=== PATIENT | female | born 1950 | race Caucasian/White ===

== ENCOUNTER → 2016-07-25 | Outpatient (CLI) | payer MEDICARE, OTHER ==
--- NOTE | ~2016-07-25 | US77 ---
[facility] A Service of [facility] RADIOLOGY TEXT RESULTS PATIENT: CHEPE BEY LOCATION: [facility] : 52 UNIT #: [id number] AGE: [address]: Papito Hartman MD SEX: F ORDER DR: [id number] [facility] [address] [facility] [place], [place] [address] [id number] O MR#: [id number] Acc #: [id number] NAME: CHEPE BEY : 1950 SEX: F STUDY DATE/TIME: 07/25/2016 14:40 UNIT: [facility] ROOM: STUDY DESCRIPTION: US Kidney Bilateral Complete Attending Physician: Papito Hartman M.D. Referring Physician: Papito Hartman M.D. Ordering Physician: Papito Hartman M.D. Primary Care Physician: Nia Kellogg Aprn MEDICAL IMAGING REPORT This report is preliminary unless electronic signature is present EXAM Renal ultrasound INDICATION Adrenal insufficiency. PROCEDURE Andrew-scale and Doppler imaging kidneys and bladder. COMPARISON None. FINDINGS Right kidney measures 14 cm. Normal. Unremarkable bladder. Previous right nephrectomy. IMPRESSION Previous right nephrectomy. Normal left kidney. Dictated by... Balbir Sarkar M.D. THIS IS AN ELECTRONICALLY VERIFIED REPORT Balbir Sarkar M.D. at 07/26/2016 7:35 AM SANDRAD/jose r TD: 07/25/2016 22:58 JOB #: [id number] MEDICAL IMAGING REPORT [facility] A Service of [facility] RADIOLOGY TEXT RESULTS PATIENT: CHEPE BEY LOCATION: [facility] : 52 UNIT #: [id number] AGE: [address]: Papito Hartman MD SEX: F ORDER DR: Page 1 of 1 COPY
== END | disposition home or self-care (01) ==
LOC: CWCC 14:17
DX: N28.9 Disorder of kidney and ureter, unspecified (principal); Z90.5 Acquired absence of kidney
CPT/HCPCS: 76770